=== PATIENT | female | born 1980 | race Two or more races ===

== ENCOUNTER 2017-02-02 14:24 | Emergency (ER) | payer OTHER ==
[~2017-02-02] VITALS: Ht 148.6 cm; Wt 80.0 kg
[~2017-02-02 14:24] MED LIST: BENTYL20 MG PO; CIPRO500 M2 PO; CLOMID50 MG; COLACE100 M1 PO; COMPAZINE5 MG; CYANOCOBAL1000 MCG/3 SC; ESGIC PLUS PO; EXCEDRIN MIGRAI1 TAB; EXCEDRIN MIGRAI1 TAB PO; FLEXERIL; FLOMAX0.4 M1 PO; GARCINIA CAMBO1 EACH PO; GLUCOPHAGE500 MG; GLUCOPHAGE500 MG PO; HYDROCODONE-AP1 EAC1 PO; IBUPROFEN200 M1 PO; IBUPROFEN600 M1 PO; MACROBID 100 M100 MG PO; MACRODANTIN100 MG; METFORMIN HCL500 M2 PO; MOTRIN600 MG PO; MULTIVITAMINS1 EAC6 PO; NO HOME MEDICATION XX; NORCO 5-325 TA1 EACH PO; NORCO 5/325 TAB1 TAB PO; OMEPRAZOLE40 M2 PO; PERCOCET 5-3251 EACH PO; PERCOCET 5/3251 TAB PO; PHENTERMINE PO; PRENATAL CAPLE1 EACH PO; PRENATAL-U CAPS1 CAP PO; PRENATAL1 EACH PO; PROGESTERONE; PROMETRIUM200 MG; PROVERA10 MG; SENNA-S TABLET1 EAC3 PO; SYNTHROID125 MCG PO; TOPAMAX15 MG PO; VICODIN 5/500 T1 TAB PO; VICODIN ES 7.51 EACH PO; VITAMIN B12; VITAMIN D250000 UNI1 PO; VITAMIN D50000 UNIT PO; ZITHROMAX250MG Z-PAK PO; [UNRECOGNIZED DRUG - OTHER]; [UNRECOGNIZED DRUG - OTHER] PO; [UNRECOGNIZED DRUG - OTHER] PO
[2017-02-02 15:26] LABS: BASO % 0.3 % (0-2); EOS % 1.6 % (0-7); EOSINOPHIL ABSOLUTE COUNT 0.1 tho/cmm (0.0-0.7); HCT-HEMATOCRIT 37.1 % (34.0-49.0); HGB-HEMOGLOBIN 12.7 gm/dl (12.0-15.5); IMMATURE GRANULOCYTES ABSOLUTE 0.03 tho/cmm (0-0.03); IMMATURE GRANULOCYTES PERCENT 0.3 % (0-0.3); LYMPH ABSOLUTE COUNT 3.4 tho/cmm (0.8-4.5); MCH (MEAN CORPUSCULAR HGB) 29.6 pg (28.0-32.0); MCHC MEAN CORPUSCULAR HGB CONC 34.2 % (32.0-36.0); MCV (MEAN CELL VOLUME) 86.5 fl (82.0-96.0); MEAN PLATELET VOLUME 9.4 cmc (9.4-12.4); MONOCYTE ABSOLUTE COUNT 0.7 tho/cmm (0.0-1.2); NEUTROPHIL ABSOLUTE COUNT 4.4 tho/cmm (1.6-8.0); NEUTROPHIL-AUTOMATED 4.4 tho/cmm (1.6-8.0); NEUTROPHILS % 50.8 % (40-80); PLATELET COUNT 304 tho/cmm (150-450); RED BLOOD COUNT 4.29 mil/cmm (4.00-5.20); WHITE BLOOD COUNT 8.6 tho/cmm (4.0-10.0)
[2017-02-02 15:34] LABS: URINE APPEARANCE CLOUDY; URINE BILIRUBIN NEGATIVE (NEG); URINE BLOOD LARGE (NEG); URINE COLOR YELLOW; URINE GLUCOSE (UA) NEGATIVE (NEG); URINE KETONE NEGATIVE (NEG); URINE LEUKOCYTE ESTERASE POSITIVE (NEG); URINE NITRITE NEGATIVE (NEG); URINE PROTEIN MODERATE (NEG); URINE SPECIFIC GRAVITY 1.025 (1.003-1.030)
[2017-02-02 15:38] LABS: ANION GAP 11 mmol/L (0-20); BLOOD UREA NITROGEN 8 mg/dl (6-24); CALCIUM 8.9 mg/dl (8.5-10.5); CARBON DIOXIDE-VENOUS 26 mmol/L (22-32); CHLORIDE 106 mmol/l (96-110); CREATININE 0.82 mg/dl (0.50-1.10); GLUCOSE 127 mg/dL (70-110); POTASSIUM 3.8 mmol/L (3.7-5.1); SODIUM 139 mmol/L (135-145); eGFR VALUE FOR BLACK >90 mL/Min
[2017-02-02 15:39] LABS: URINE RBC 80-100 /[HPF] (0-5)
[2017-02-02 15:40] LABS: URINE WBC 0-3 /[HPF] (0-5)
[2017-02-02] MEDS ORDERED: PERCOCET 5-3251 EACH PO (16:46)
[2017-02-02] MEDS ORDERED: ZOFRAN ODT4 MG PO (16:46)
== END 2017-02-02 17:44 ==
LOC: EDMED 14:24
PROVIDERS: Emergency Medicine
DX: G89.18 Other acute postprocedural pain (principal)
CPT/HCPCS: J1170; J2405; J7030